=== PATIENT | male | born 1945 | race Two or more races ===

== ENCOUNTER 2017-10-30 13:00 | Outpatient (RCR) ==
--- NOTE | 2017-10-14 12:04 | RS.OPPTEV2 ---
Date of Note: 10/13/17 Visit #: 1 Date of Evaluation: 10/13/17 Payer Source: MEDICARE Treatment Diagnosis: Left LE weakness, s/p CVA History of Condition/Mechanism of Injury:: Patient reports having a CVA approximately 3-4 weeks ago. Documents actually show CVA on 09/05/17. He was in the hospital ~ 4 days and then discharged home per his request. He reports receiving a few weeks of Home Health Physical Therapy. States prior to that he had a CVA that affected the vision of the left eye. Prior Level of Function.....Patient was independent with: ADL's, Self Care, Caregiving, Ambulation/Mobility, Community Integration/Access Level of Function: Prior to this onset, Mr. Rubi was helping his mother, who lives across the street and has Alzheimer's. Functional Limitations: ADL's, Standing, Ambulation, Community Access/ Integration Current Subjective/complaints:: Mr. Rubi states he has gained some of his strength back in his left UE and LE. States he continues to have difficulty with ambulation. Also reports difficulty getting in and out of his vehicle. He has stairs at home, but reports not having any problems with them. States his main problem is ambulating because of weakness still in the left LE. States he has to concentrate on lifting his left foot or he will catch the foot on the floor. He reports no falls. He has not used a walker in a few weeks. States he tried a cane, but he did not feel comfortable with it. He has a shower at home and states he can beef skinner the shower without any problems. States ADL's take him longer, with some difficulty. States his left UE is much better, he can button his clothes now. States he does still have some weakness in the arm above shoulder height. He is very independent and hopes to regain his strength. Treatment Side (optional): Left Medical History Medical History: Hypertension, CVA/TIA, Diabetes Medical History Comments:: Mitral regurgitation, CAD, Cardiac ejection fraction 22%, Systolic heart failure Surgical History: Cholecystectomy Smoking Status: Former smoker Hx Home Medications: bumetanide,coreg,losartan,nicotine patch, atorvastatin, plavix,perflutren Patient's Goals: His goal is to return to his prior level of function. Functional Outcome Measure LE Functional Scale: 35 (35/80=56.25% impairment) Tinetti: 16 (16/28=42.8% impairment) Other: Attempted 6 minute walk test. Mr. Rubi caught his left foot multiple times, and required stabilization by this therapist to avoid falling at least four times. Test was stopped at 2 mins, 30 seconds. Patient ambulated 444 feet in that time. - G Codes & Severity Modifier G Codes & Modifier: Mobility current CK. Mobility goal CI Source of G Code score: Tinetti Assessment Gait - Gait Pattern Gait Comments: Patient ambulates without an assistive device, independently into the department. He demonstrates decreased heel strike and push off on the Left LE. Also demonstrates internal rotation of the right hip and decreased DF during swing phase. Patient demonstrates greater difficulty clearing the left LE with ambulation if he is distracted or talking. Presents associated reaction in the left UE during gait, as it is held out into horizontal abduction with ER. During 6 minute walk test, Mr. Rubi had to be assisted approximately 4 times to keep him from falling due to left LE not clearing the floor. He is able to perform sit to stand transfers independently. General Range of Motion: Bilateral UE AROM is WFL's. Right LE AROM WFL's. Left LE AAROM is WFL's. Muscle Strength: Right UE and LE strength 5/5 throughout. Left UE is 4/5 at the shoulder, 4+/5 elbow and wrist. Bonsai Tender left 65 lbs, right 79-80 lbs. Left hip 4/5, quads 4-5, HS 4-/5. Ankle DF 4-/5, PF 4/5, inversion and eversion 4-/ 5. Trunk strength 4/5. Sensation - Sensation Right Upper Extremity: Intact/Normal Left Upper Extremity: Intact/Normal Right Lower Extremity: Intact/Normal Left Lower Extremity: Intact/Normal Comments: Proprioception intact in left UE and LE. Balance - Sitting Balance Static Sitting Balance: Good Dynamic Sitting Balance: Good - Standing Balance Static Standing Balance: Good (-) Dynamic Standing Balance: Fair (+) Coordination - Tests Right Finger to Nose: Normal/Intact Heel to Meng: Normal/Intact Toe Tapping: Normal/Intact Left Finger to Nose: Mild Deviation Heel to Meng: Mild Deviation Toe Tapping: Moderate Deviation (at faster speeds) Interventions - Exercise/Activities/Manual Therapy Exercises/Activities: None given today. Manual Therapy: NA - Charges Timed Code Treatment Minutes: 0 Total Treatment Time: 50 mins Procedures billed for this date of service:: EVAL Medium EVALUATION COMPLEXITY LEVEL EVALUATION COMPLEXITY LEVEL: HISTORY: Medium (CVA, Diabetes, HX heart problems) , EXAM OF BODY SYSTEMS: Medium (strength, coordination, sensation, balance, gait ), CLINICAL PRESENTATION: Medium, CLINICAL DECISION MAKING: Medium Assessment Assessment: Patient presents to therapy with a diagnosis of generalized weakness. He presents 5 weeks after having a CVA that affected the left side and has significantly impaired his ambulation. He presents with left LE weakness and impaired coordination. He presents to be at a High risk for falls per Tinetti Assessement and being unable to complete the 6 minute walk test due to multiple near falls. He exhibits great potential to regain coordination and strength to return to his previous level of independence and decrease his risk for falls. Patient Education: Education of diagnosis, Body/Joint mechanics, Home Exercise Program, Home Safety, Activity Modification, Education of Plan of Care Rehab Potential: Good Short Term Goals Goal #1: Patient independent and compliant with HEP. Goal to be met by: 10/28/17 Goal #2: Pt will demo. consistent foot clearance on the left LE w/ all ambulation. Goal to be met by: 10/28/17 Goal #3: Left LE coordination to show only slight impairment. Goal to be met by: 10/28/17 Goal #4: Pt able to complete 6 min. walk test with no loss of balance. Goal to be met by: 11/04/17 [facility] Goals Goal #1: Pt knows HEP and to continue ex's to maintain level of function at D/C. Goal to be met by: 11/23/17 Goal #2: Score on Tinetti Assessment improved to 24/28. Goal to be met by: 11/23/17 Goal #3: Pt to amb. community distances w/ good safety and no loss of balance. Goal to be met by: 11/23/17 Goal #4: Pt able to perform all ADL's independently without difficulty. Goal to be met by: 11/23/17 Plan - Treatment to be Provided Procedures: Therapeutic Exercises, Therapeutic Activity, Gait Training, Neuromuscular Rehab, Patient Education Modalities: No Modalities - Treatment Plan Frequency: 3 X week Duration: 4 weeks ORDER # VISITS AND/OR THROUGH DATE: 11/23/17 - Treatment Code (1) Acute left-sided weakness Code(s): M62.89 - OTHER SPECIFIED DISORDERS OF MUSCLE Comments: M62.89 (2) Functional gait abnormality Code(s): R26.89 - OTHER ABNORMALITIES OF GAIT AND MOBILITY Comments: R26.89 (3) Coordination impairment Code(s): R27.8 - OTHER LACK OF COORDINATION Comments: R27.8 (4) Ischemic stroke of frontal lobe Code(s): I63.9 - CEREBRAL INFARCTION, UNSPECIFIED Comments: I63.9
--- NOTE | 2017-10-14 15:52 | RS.OPPTDN ---
Subjective Date of Note: 10/14/17 Visit #: 2 Date of Evaluation: 10/13/17 Payer Source: MEDICARE Treatment Diagnosis: Left LE weakness, s/p CVA Current Subjective/complaints:: Mr. Rubi states he continues to work on some exercises he was given by [facility]. Reports right knee has been bothering him since he has to right on the right LE since having the stroke. Balance System Training - Level 1 Postural Stability/Symmetry #1 Training Mode: Postural Stability Training Vision: Eyes Open Task: None Platform Stability Level (1-12): locked Stance: Normal Reps: 30 secs #2 Training Mode: Weight Shift Training Vision: Eyes Open Task: None Platform Stability Level (1-12): Locked Stance: Normal Reps: 2 sets of 10 reps Interventions - Exercise/Activities/Manual Therapy Exercises/Activities: Patient performed ex's on mat table of left LE controlled heel slides. Then followed instructions to perform heel slides and LAQs alternately. Green band used for resistive hip abduction, 2 sets of 10 reps. Performed bridging, and resisted hip flexion with 5# weight, both 2 sets of 6 reps. In sitting patient performed alternating heel slide and LAQ. He needed some tactile cues to perform the correct exercise. He performed resisted AROM against a red theraband for left ankle DF, inversion, and eversion (2 sets of 8 reps). Patient fatigued quickly with exercises into eversion. Patient performed standing exercises for balance of weight shifting side to side and stepping forward, side ways, and backward. Patient needed CGA to maintain balance with standing activities. Total minutes of Exercise: X 48 mins Manual Therapy: NA - Charges Timed Code Treatment Minutes: 48 mins Total Treatment Time: 53 mins Procedures billed for this date of service:: Neuro X 2, EX Assessment: Mr. Rubi is very pleasant and motivated to gain his balance and coordination back. He demonstrates potential to benefit from continued strengthening and neuromuscular facilitation to improve his ambulation and decrease his risk for falls. Patient Education: Education of diagnosis, Home Safety, Activity Modification Short Term Goals Goal #1: Patient independent and compliant with HEP. Goal to be met by: 10/28/17 Goal #2: Pt will demo. consistent foot clearance on the left LE w/ all ambulation. Goal to be met by: 10/28/17 Goal #3: Left LE coordination to show only slight impairment. Goal to be met by: 10/28/17 Goal #4: Pt able to complete 6 min. walk test with no loss of balance. Goal to be met by: 11/04/17 Auditing Manager Goals Goal #1: Pt knows HEP and to continue ex's to maintain level of function at D/C. Goal to be met by: 11/23/17 Goal #2: Score on Tinetti Assessment improved to . Goal to be met by: 11/23/17 Goal #3: Pt to amb. community distances w/ good safety and no loss of balance. Goal to be met by: 11/23/17 Goal #4: Pt able to perform all ADL's independently without difficulty. Goal to be met by: 11/23/17 Plan PLAN OF CARE EXPIRES ON:: 11/23/17 ORDER # VISITS AND/OR THROUGH DATE: 11/23/17 PLAN: Progress strengthening and coordination activities/exercises.
--- NOTE | 2017-10-16 14:47 | RS.OPPTDN ---
Subjective Date of Note: 10/16/17 Visit #: 3 Date of Evaluation: 10/13/17 Payer Source: MEDICARE Treatment Diagnosis: Left LE weakness, s/p CVA Current Subjective/complaints:: Patient reports he has already done a lot of activity today. States he went to [facility] to buy cat food and went to a visitation at the Home. States left LE gets fatigued and it makes it more difficult to clear his foot when walking. Interventions - Exercise/Activities/Manual Therapy Exercises/Activities: Patient performed ex's on mat table of left LE controlled heel slides. Then followed instructions to perform heel slides and LAQs alternately. Touches right heel to left ankle, left knee, then back to resting position X 5 reps. Performed rhythmic stabilization for trunk rotation , 2 sets of 5 reps. Green band used for resistive hip abduction, 2 sets of 10 reps. Performed bridging, SAQ's, and resisted hip flexion with 5# weight, both 2 sets of 6 reps. Performs SLR circles clockwise X 6 reps then counter clockwise X 6 reps, 2 sets with minimal assistance. He performed resisted AROM against a red theraband for left ankle DF, inversion, and eversion (2 sets of 8 reps). Showed less fatigue today with eversion compared to Thursday. Performed resisted hip flexion with 5# weight on the left ankle. Patient performed standing exercises for balance of weight shifting side to side and stepping forward, side ways, and backward. In standing, performed hip flexion to place foot on top of step and then return to standing, bilaterally 2 sets of 5 reps. Patient needed CGA to maintain balance with standing activities. Performed side stepping to left and right with CGA and tandum walking with moderate assistance. Total minutes of Exercise: X 46 mins Manual Therapy: NA - Charges Timed Code Treatment Minutes: 46 mins Total Treatment Time: 58 mins Procedures billed for this date of service:: Neuro, Ex2 Assessment: Mr. Rubi tolerates all exercise and activities well. He is motivated to perform as much as he can to regain his strength and safety with walking. Patient Education: Education of diagnosis, Body/Joint mechanics, Home Exercise Program Short Term Goals Goal #1: Patient independent and compliant with HEP. Goal to be met by: 10/28/17 Goal #2: Pt will demo. consistent foot clearance on the left LE w/ all ambulation. Goal to be met by: 10/28/17 Goal #3: Left LE coordination to show only slight impairment. Goal to be met by: 10/28/17 Goal #4: Pt able to complete 6 min. walk test with no loss of balance. Goal to be met by: 11/04/17 Care Home Goals Goal #1: Pt knows HEP and to continue ex's to maintain level of function at D/C. Goal to be met by: 11/23/17 Goal #2: Score on Tinetti Assessment improved to . Goal to be met by: 11/23/17 Goal #3: Pt to amb. community distances w/ good safety and no loss of balance. Goal to be met by: 11/23/17 Goal #4: Pt able to perform all ADL's independently without difficulty. Goal to be met by: 11/23/17 Plan PLAN OF CARE EXPIRES ON:: 11/23/17 ORDER # VISITS AND/OR THROUGH DATE: 11/23/17 PLAN: Progress strengthening and coordination exercises.
--- NOTE | 2017-10-21 10:30 | RS.OPPTDN ---
Subjective Date of Note: 10/20/17 Visit #: 4 Date of Evaluation: 10/13/17 Payer Source: MEDICARE Treatment Diagnosis: Left LE weakness, s/p CVA Current Subjective/complaints:: Mr. Rubi states he continues to catch his left foot during gait if he isn't concentrating on his walking. States he will do what ever it takes to get better. Balance System Training - Level 1 Postural Stability/Symmetry #1 Training Mode: Weight Shift Training Vision: Eyes Open Task: None Platform Stability Level (1-12): static Stance: Normal Reps: 6 reps each direction, side to side, then diagonally weight shifting - Level 2 Dynamic Weight Shifting #1 Training Mode: Limits of Stability Skill Level (1-3): 1 Platform Stability Level (1-12): static Reps: one time - Balance Training Comments patient able to complete Limits of Stability training in less time compared to evaluation. Interventions - Exercise/Activities/Manual Therapy Exercises/Activities: Performs SLR circles clockwise X 6 reps then counter clockwise X 6 reps, 2 sets with minimal assistance to guide the left leg in both directions. Patient performed ex's on mat table of left LE controlled heel slides. Then followed instructions to perform heel slides and LAQs alternately. Touches right heel to left ankle, left knee, then back to resting position X5 reps, then changed from touching left knee, ankle, and back to rest position X 5 reps. Performed rhythmic stabilization for trunk rotation , 2 sets of 5 reps. Green band used for resistive hip abduction, 2 sets of 10 reps. Green theraband for hip adduction @ sets of 10 reps.Performed bridging with only left leg with assistance to hold left foot from moving. SAQ's, and resisted hip flexion with 5# weight, both 2 sets of 6 reps. He performed resisted AROM against a red theraband for left ankle DF, inversion, and eversion (2 sets of 8 reps). Performed resisted hip flexion with 5# weight on the left ankle. Performed alternating LAQ and hip flexion with verbal and tactile cues to perform the correct exercise. Patient performed standing exercises for balance of weight shifting side to side and stepping forward, side ways, and backward. In standing,. Performed side stepping to left and right with CGA min-mod assistance. Performed grapevine, only crossing over the other foot with mod assist of one. Total minutes of Exercise: 48 mins Manual Therapy: NA - Charges Timed Code Treatment Minutes: 48 mins Total Treatment Time: 56 mins Procedures billed for this date of service:: Neuro X 2, EX Assessment: patient is very cooperative and motivated to perform any activity that will improve his strength and ambulation. He has potential to benefit from progressed strengthening, balance, and coordination activities. Patient Education: Education of diagnosis, Body/Joint mechanics, Home Safety, Activity Modification, Education of Plan of Care Short Term Goals Goal #1: Patient independent and compliant with HEP. Goal to be met by: 10/28/17 Goal #2: Pt will demo. consistent foot clearance on the left LE w/ all ambulation. Goal to be met by: 10/28/17 Goal #3: Left LE coordination to show only slight impairment. Goal to be met by: 10/28/17 Goal #4: Pt able to complete 6 min. walk test with no loss of balance. Goal to be met by: 11/04/17 Funeral Arrangement Director Goals Goal #1: Pt knows HEP and to continue ex's to maintain level of function at D/C. Goal to be met by: 11/23/17 Goal #2: Score on Tinetti Assessment improved to 28. Goal to be met by: 11/23/17 Goal #3: Pt to amb. community distances w/ good safety and no loss of balance. Goal to be met by: 11/23/17 Goal #4: Pt able to perform all ADL's independently without difficulty. Goal to be met by: 11/23/17 Plan PLAN OF CARE EXPIRES ON:: 11/23/17 ORDER # VISITS AND/OR THROUGH DATE: 11/23/17 PLAN: Progress coordination and strengthening exercises.
--- NOTE | 2017-10-21 14:39 | RS.OPPTDN ---
Subjective Date of Note: 10/21/17 Visit #: 5 Date of Evaluation: 10/13/17 Payer Source: MEDICARE Treatment Diagnosis: Left LE weakness, s/p CVA Current Subjective/complaints:: Mr. Rubi states he is catching his left foot less with walking and also not having to constantly think about it as much. States he is able to get his pants on easier, due to being able to raise the left leg higher and balance on the left leg better to jessica the right LE. Interventions - Exercise/Activities/Manual Therapy Exercises/Activities: Performs SLR circles clockwise X 6 reps then counter clockwise X 6 reps, 2 sets with minimal assistance to guide the left leg in both directions. Patient performed ex's on mat table of left LE controlled heel slides. Then followed instructions to perform heel slides and LAQs alternately. Touches right heel to left ankle, left knee, then back to resting position X5 reps, then changed from touching left knee, ankle, and back to rest position X 5 reps. Performed rhythmic stabilization for trunk rotation , 2 sets of 5 reps. Performed bridging with only left leg with assistance to hold left foot from moving. SAQ's, and resisted hip flexion with 5# weight, both 2 sets of 6 reps. He performed resisted AROM against a red theraband for left ankle DF, inversion, and eversion (2 sets of 10 reps). Performed resisted hip flexion with 6# weight on the left ankle. Performed alternating LAQ and hip flexion with verbal and tactile cues to perform the correct exercise. Performed LAQ's with 5# weight on LE with assistance isolating the quads to perform the exercise correctly. Performed dynamic reaching in standing from side to side with ball, with CGA to maintain balance and VC's. Performed minsquats and lateral weight shifting while standing on foam and using chair for support when needed. Performs alternate arm and leg combination in hooklying, 2 sets of 6 reps. Instructed in exercises to perform at home of standing weight shifting and single leg standing, both while standing at a table or counter for safety. Total minutes of Exercise: 46 mins Manual Therapy: NA HOME EXERCISE PROGRAM: standing weight shifting and single leg standing, both while standing at a table or counter for safety. - Charges Timed Code Treatment Minutes: 46 mins Total Treatment Time: 52 mins Procedures billed for this date of service:: NeuroX 2, EX Assessment: Mr. Rubi reports greater ease with donning pants, due to improved balance on left LE and more hip flexion on the left. Also reports not having to concentrate as much on clearing the left foot with ambulation. He still presents to be a fall risk and needs more strength and coordination in the left LE. Patient Education: Education of diagnosis, Home Exercise Program, Home Safety, Activity Modification, Education of Plan of Care Short Term Goals Goal #1: Patient independent and compliant with HEP. Goal to be met by: 10/28/17 Goal #2: Pt will demo. consistent foot clearance on the left LE w/ all ambulation. Goal to be met by: 10/28/17 Progress towards Goal:: Progressing Goal #3: Left LE coordination to show only slight impairment. Goal to be met by: 10/28/17 Progress towards Goal:: Progressing Goal #4: Pt able to complete 6 min. walk test with no loss of balance. Goal to be met by: 11/04/17 School Office Assistant Goals Goal #1: Pt knows HEP and to continue ex's to maintain level of function at D/C. Goal to be met by: 11/23/17 Goal #2: Score on Tinetti Assessment improved to 28. Goal to be met by: 11/23/17 Goal #3: Pt to amb. community distances w/ good safety and no loss of balance. Goal to be met by: 11/23/17 Goal #4: Pt able to perform all ADL's independently without difficulty. Goal to be met by: 11/23/17 Plan PLAN OF CARE EXPIRES ON:: 11/23/17 ORDER # VISITS AND/OR THROUGH DATE: 11/23/17 PLAN: Progress coordination and strengthening exercises.
--- NOTE | 2017-10-26 09:10 | RS.OPPTDN ---
Subjective Date of Note: 10/23/17 Visit #: 6 Date of Evaluation: 10/13/17 Payer Source: MEDICARE Treatment Diagnosis: Left LE weakness, s/p CVA Current Subjective/complaints:: Patient with no new complaints today. Working on exercises at home. Interventions - Exercise/Activities/Manual Therapy Exercises/Activities: Performs SLR circles clockwise X 6 reps then counter clockwise X 6 reps, 2 sets with minimal assistance to guide the left leg in both directions. Patient performed ex's on mat table of left LE controlled heel slides. Demonstrates smoother movements and performed without assistance. Then followed instructions to perform heel slides and LAQs alternately. Touches right heel to left ankle, left knee, then back to resting position X5 reps, then changed from touching left knee, ankle, and back to rest position X 5 reps. Performed rhythmic stabilization for trunk rotation , 2 sets of 5 reps. Performed bridging with only left leg with assistance to hold left foot from moving. SAQ's, and resisted hip flexion with 5# weight, both 2 sets of 6 reps. He performed resisted AROM against a red theraband for left ankle DF, inversion, and eversion (2 sets of 10 reps). Performed resisted hip flexion with 6# weight on the left ankle. Performed alternating LAQ and hip flexion with verbal and tactile cues to perform the correct exercise. Performed LAQ's with 5# weight on LE with assistance isolating the quads to perform the exercise correctly. Performed minsquats and lateral weight shifting while standing on foam and using chair for support when needed. Performs alternate arm and leg combination in hooklying, 2 sets of 6 reps. Performed on treadmill at speed of .8 mph, with CGA and verbal cues to stay up close to front of treadmill and perform exaggerated hip flexion on the left LE. Performed for 30 secs X 2 reps. Performed side stepping with CGA of one to each direction X 2 approximately 15 feet each direction. Total minutes of Exercise: X 44 mins Manual Therapy: NA HOME EXERCISE PROGRAM: standing weight shifting and single leg standing, both while standing at a table or counter for safety. - Charges Timed Code Treatment Minutes: 44 mins Total Treatment Time: 54 mins Procedures billed for this date of service:: Neuro, EX2 Assessment: Mr. Rubi shows more fluid movement with the LE coordination exercises today and less need for assistance. Continues to demonstrate to be a high fall risk due to inconsistent clearing of the left foot. He demonstrates potential to benefit from continued coordination, strengthening, and balance activities to reduce his risk for falls and facilitate improved community ambulation. Patient Education: Education of diagnosis, Home Exercise Program, Home Safety, Activity Modification, Education of Plan of Care Patient demonstrates compliance with HEP?: Yes Short Term Goals Goal #1: Patient independent and compliant with HEP. Goal to be met by: 10/28/17 Progress towards Goal:: Progressing Goal #2: Pt will demo. consistent foot clearance on the left LE w/ all ambulation. Goal to be met by: 10/28/17 Progress towards Goal:: Progressing Goal #3: Left LE coordination to show only slight impairment. Goal to be met by: 10/28/17 Progress towards Goal:: Progressing Goal #4: Pt able to complete 6 min. walk test with no loss of balance. Goal to be met by: 11/04/17 Long-Term Goals Goal #1: Pt knows HEP and to continue ex's to maintain level of function at D/C. Goal to be met by: 11/23/17 Goal #2: Score on Tinetti Assessment improved to 24/28. Goal to be met by: 11/23/17 Goal #3: Pt to amb. community distances w/ good safety and no loss of balance. Goal to be met by: 11/23/17 Goal #4: Pt able to perform all ADL's independently without difficulty. Goal to be met by: 11/23/17 Plan PLAN OF CARE EXPIRES ON:: 11/23/17 ORDER # VISITS AND/OR THROUGH DATE: 11/23/17 PLAN: Progress balance/coordination/strengthening exercises.
--- NOTE | 2017-10-27 14:34 | RS.OPPTDN ---
Subjective Date of Note: 10/27/17 Visit #: 7 Date of Evaluation: 10/13/17 Payer Source: MEDICARE Treatment Diagnosis: Left LE weakness, s/p CVA Current Subjective/complaints:: States he is a little tired today. He reports he walked several blocks today. States he caught his foot a few times while walking, but did not fall. Interventions - Exercise/Activities/Manual Therapy Exercises/Activities: Performs SLR circles clockwise X 6 reps then counter clockwise X 6 reps, 2 sets with minimal assistance to guide the left leg in both directions. Pt followed instructions to perform heel slides and LAQs alternately. Touches right heel to left ankle, left knee, then back to resting position X5 reps, then changed from touching left knee, ankle, and back to rest position X 5 reps. He needed assistance to perform this activity in the right order. Performed rhythmic stabilization for trunk rotation , 2 sets of 5 reps. Performed bridging with left leg with assistance to hold left foot from moving. SAQ's, and resisted hip flexion with 7# weight, both 3 sets of 8 reps. He performed resisted AROM against a red theraband for left ankle DF, inversion , and eversion (2 sets of 10 reps). Performed resisted hip flexion with 7# weight on the left ankle. Performed alternating LAQ and hip flexion with verbal and tactile cues to perform the correct exercise. Performs alternate arm and leg combination in hooklying, 2 sets of 6 reps. Performed side stepping with CGA of one to each direction X 2 approximately 15 feet each direction. Performed ambulation backward, small steps with min assist of one to maintain balance. Manual Therapy: NA HOME EXERCISE PROGRAM: standing weight shifting and single leg standing, both while standing at a table or counter for safety. - Other Services Other Treatments/Services: Taping/Strapping Treatment Details: Taped left anterior tib to facilitate DF with ambulation. One piece of I Kinesiotape applied. Patient instructed to remove tape if it bothered him. - Charges Timed Code Treatment Minutes: 50 mins Total Treatment Time: 58 mins Procedures billed for this date of service:: Neuro X 2, Ex 2 Assessment: Mr. Rubi is very pleasant and willing to do whatever activities will help his ambulation. He was pleased to try the Kinesiotape, to see if it would help him avoid catching his foot when he walks. Patient Education: Body/Joint mechanics, Home Exercise Program, Home Safety Patient demonstrates compliance with HEP?: Yes Short Term Goals Goal #1: Patient independent and compliant with HEP. Goal to be met by: 10/28/17 Progress towards Goal:: Progressing Goal #2: Pt will demo. consistent foot clearance on the left LE w/ all ambulation. Goal to be met by: 10/28/17 Progress towards Goal:: Progressing Goal #3: Left LE coordination to show only slight impairment. Goal to be met by: 10/28/17 Progress towards Goal:: Progressing Goal #4: Pt able to complete 6 min. walk test with no loss of balance. Goal to be met by: 11/04/17 Intermediate Goals Goal #1: Pt knows HEP and to continue ex's to maintain level of function at D/C. Goal to be met by: 11/23/17 Progress towards goal: Progressing Goal #2: Score on Tinetti Assessment improved to 24/28. Goal to be met by: 11/23/17 Goal #3: Pt to amb. community distances w/ good safety and no loss of balance. Goal to be met by: 11/23/17 Goal #4: Pt able to perform all ADL's independently without difficulty. Goal to be met by: 11/23/17 Plan PLAN OF CARE EXPIRES ON:: 11/23/17 ORDER # VISITS AND/OR THROUGH DATE: 11/23/17 PLAN: Progress balance and coordination exercises. May use kinesiotape to inhibit left plantarflexion.
--- NOTE | 2017-10-28 15:39 | RS.OPPTDN ---
Subjective Date of Note: 10/28/17 Visit #: 8 Date of Evaluation: 10/13/17 Payer Source: MEDICARE Treatment Diagnosis: Left LE weakness, s/p CVA Current Subjective/complaints:: Mr. Rubi states he walked 16 blocks again today. States he caught his foot a few times. States the Kinesiotape came off when he changed his socks. States he really liked the tape and would like to use it again. Interventions - Exercise/Activities/Manual Therapy Exercises/Activities: Received stretching heelcord on left LE. Facilitated left LE strength with D1 PNF flexion pattern for the left LE X 8 reps with assistance of verbal and tactile cues. Touches right heel to left ankle, left knee, then back to resting position X5 reps, then changed from touching left knee, ankle, and back to rest position X 5 reps. He needed assistance to perform this activity in the right order. Performed rhythmic stabilization for trunk rotation , 2 sets of 5 reps. Performed bridging with left leg with assistance to hold left foot from moving. SAQ's, and resisted hip flexion with 7 # weight, both 3 sets of 8 reps. He performed resisted AROM against a red theraband for left ankle DF, 3 sets of 10 reps. Performed resisted hip flexion with 7# weight on the left ankle. Performed alternating LAQ and hip flexion with verbal and tactile cues to perform the correct exercise. Performs alternate arm and leg combination in hooklying, 2 sets of 6 reps. Performed side stepping with CGA of one to each direction X 2 approximately 15 feet each direction. In standing, performed weight shifting anteriorly, posteriorly, and laterally with CGA to min assist. Focused on dynamic balance also with standing and kicking a ball that was rolled on the floor to him, ~ 5 reps each leg, with min A of 1. Performed on Leg press with 75# for both LE's, then toe pushes with 50#, both 10 reps each. Total minutes of Exercise: 54 mins Manual Therapy: NA HOME EXERCISE PROGRAM: standing weight shifting and single leg standing, both while standing at a table or counter for safety. - Other Services Other Treatments/Services: Taping/Strapping Treatment Details: Kinesiotape applied to left anterior tib to faciliate DF and supination. - Objective Findings Observations,measurements,etc.: Patient demonstrates spasticity in the left LE into PF and pronation during swing phase. - Charges Timed Code Treatment Minutes: 54 mins Total Treatment Time: 62 mins Procedures billed for this date of service:: Neuro X 2, Ex 2 Assessment: Mr. Rbui is trying to walk more. He is highly motivated to continue to gain more strength and safety. He continues to be at risk for falls , as he sporadically catches the left foot during swing phase. He has potential to reduce his risk for falls with continued skilled therapy. Patient Education: Home Exercise Program, Home Safety, Activity Modification, Education of Plan of Care Patient demonstrates compliance with HEP?: Yes Short Term Goals Goal #1: Patient independent and compliant with HEP. Goal to be met by: 10/28/17 Progress towards Goal:: Progressing Goal #2: Pt will demo. consistent foot clearance on the left LE w/ all ambulation. Goal to be met by: 10/28/17 Progress towards Goal:: Progressing Goal #3: Left LE coordination to show only slight impairment. Goal to be met by: 10/28/17 Progress towards Goal:: Progressing Goal #4: Pt able to complete 6 min. walk test with no loss of balance. Goal to be met by: 11/04/17 Long-Term Goals Goal #1: Pt knows HEP and to continue ex's to maintain level of function at D/C. Goal to be met by: 11/23/17 Progress towards goal: Progressing Goal #2: Score on Tinetti Assessment improved to 28. Goal to be met by: 11/23/17 Goal #3: Pt to amb. community distances w/ good safety and no loss of balance. Goal to be met by: 11/23/17 Progress towards goal: Progressing Goal #4: Pt able to perform all ADL's independently without difficulty. Goal to be met by: 11/23/17 Progress towards goal: Progressing Plan PLAN OF CARE EXPIRES ON:: 11/23/17 ORDER # VISITS AND/OR THROUGH DATE: 11/23/17 PLAN: Continue to progress activities to reduce left ankle spasticity and decrease his risk for falls.
--- NOTE | 2017-10-30 15:47 | RS.OPPTDN ---
Subjective Date of Note: 10/30/17 Visit #: 9 Date of Evaluation: 10/13/17 Payer Source: MEDICARE Treatment Diagnosis: Left LE weakness, s/p CVA Current Subjective/complaints:: Mr. Rubi states he has been working on his exercises at home. Reports he is able to more easily raise the left leg. Interventions - Exercise/Activities/Manual Therapy Exercises/Activities: Received stretching heelcord and HS on left LE. Facilitated left LE strength with D1 PNF flexion pattern for the left LE X 6 reps with assistance of verbal and tactile cues. Performed rhythmic stabilization for trunk rotation , 2 sets of 5 reps. Performed bridging with left leg with minimal assistance to hold left foot. SAQ's, and resisted hip flexion with 8# weight, both 2 sets of 8 reps. He performed resisted AROM against a red theraband for left ankle DF, 3 sets of 10 reps. Performed resisted hip flexion with 8# weight on the left ankle. Performs alternate arm and leg combination in hooklying, 2 sets of 6 reps. Performed side stepping with CGA of one to each direction X 2 approximately 15 feet each direction. In standing, performed weight shifting anteriorly, posteriorly, and laterally with CGA to min assist. Performed tandum walking with min assistance X 4 reps at distance of 15 feet each rep. Performed on Leg press with 75# for both LE's, then toe pushes with 50#, both 10 reps each. Manual Therapy: NA HOME EXERCISE PROGRAM: standing weight shifting and single leg standing, both while standing at a table or counter for safety. - Objective Findings Observations,measurements,etc.: Patient continues to demonstrate spasticity in the left LE. The left ankle is drawn into PF and inversion during swing phase, causing him to catch his foot if he is not concentrating or if fatigued. He did not catch his foot on the floor while walking in the department today. - Charges Timed Code Treatment Minutes: 56 mins Total Treatment Time: 65 mins Procedures billed for this date of service:: Neuro X 2, Ex X2 Assessment: Mr. Rubi is compliant with HEP and tolerates all exercises in the department very well. We will reassess him on next visit, which is his 10th visit. Patient Education: Education of diagnosis, Body/Joint mechanics, Home Exercise Program Patient demonstrates compliance with HEP?: Yes Short Term Goals Goal #1: Patient independent and compliant with HEP. Goal to be met by: 10/28/17 Progress towards Goal:: Progressing Goal #2: Pt will demo. consistent foot clearance on the left LE w/ all ambulation. Goal to be met by: 10/28/17 Progress towards Goal:: Progressing Goal #3: Left LE coordination to show only slight impairment. Goal to be met by: 10/28/17 Progress towards Goal:: Progressing Goal #4: Pt able to complete 6 min. walk test with no loss of balance. Goal to be met by: 11/04/17 Nursing Home Goals Goal #1: Pt knows HEP and to continue ex's to maintain level of function at D/C. Goal to be met by: 11/23/17 Progress towards goal: Progressing Goal #2: Score on Tinetti Assessment improved to . Goal to be met by: 11/23/17 Goal #3: Pt to amb. community distances w/ good safety and no loss of balance. Goal to be met by: 11/23/17 Progress towards goal: Progressing Goal #4: Pt able to perform all ADL's independently without difficulty. Goal to be met by: 11/23/17 Progress towards goal: Progressing Plan PLAN OF CARE EXPIRES ON:: 11/23/17 ORDER # VISITS AND/OR THROUGH DATE: 11/23/17 PLAN: Plan to reassess Mr. Rubi's level of function on next visit.
== END 2017-10-30 23:59 ==
PROVIDERS: ATTEND Internal Medicine
DX: I63.9 Cerebral infarction, unspecified (principal); M62.89 Other specified disorders of muscle; R26.89 Other abnormalities of gait and mobility; R27.8 Other lack of coordination

== ENCOUNTER 2017-11-27 13:00 | Outpatient (RCR) ==
--- NOTE | 2017-11-03 15:27 | RS.PTSUM ---
Progress Note/Summary Date of Note: 11/03/17 Date of Evaluation: 10/13/17 Number of Visits: 10 Reporting Period for this Progress Note: 10/13/17 through 11/03/17 Current Complaints/Gains: Mr. Rubi states he has been trying to walk each morning. States this morning, he decided to walk [address] On his way back home, he caught his foot and fell on the sidewalk. Objective Measurements/Presentation: Demonstrates scraps and fresh blood on the right elbow. Patient performed 5 X sit to stand at 11.15 sec (improved from 11.82 secs at evaluation. Patient ambulated 444 feet,in 2 minutes 22 seconds, which equals at gait speed of .95 m/s. He did not catch his foot during this distance. Coordination presents to have minimal impairment on the left LE, movements are smoother compared to evaluation, and patient needs less assistance. Patient received 55 mins of therapy of therapeutic exercise and neurofaciliation: Received stretching heelcord and HS on left LE. Facilitated left LE strength with D1 PNF flexion pattern for the left LE X 5 reps with assistance of verbal and tactile cues. Performed rhythmic stabilization for trunk rotation , 2 sets of 5 reps. Performed bridging with left leg with minimal assistance to hold left foot, X 10 reps. SAQ's, and resisted hip flexion with 8# weight, both 2 sets of 10 reps. He performed resisted AROM against a red theraband for left ankle DF, 3 sets of 10 reps. Performed resisted hip flexion with 8# weight on the left ankle, 2 sets of 10 reps Performs alternate arm and leg combination in hooklying, 2 sets of 6 reps. Performed side stepping with CGA of one to each direction X 2 approximately 15 feet each direction. Performed on Leg press with 90# for both LE's, then toe pushes with 75#, both 10 reps each. Charged Neuro X 2, Ex 2 G Codes: Mob current CJ. Mob goal CI Source of G Code Score: Tinetti Assessment: improvedto =29% impairment. Improved in areas of: rising from chair, standing balance, left foot clearing floor, and path. - Short Term Goals Goal #1: Patient independent and compliant with HEP. Goal to be met by: 11/17/17 Progress towards Goal:: Progressing Goal #2: Pt will demo. consistent foot clearance on the left LE w/ all ambulation. Goal to be met by: 11/17/17 Progress towards Goal:: Partially Met (met with short to moderate distances) Goal #3: Left LE coordination to show only slight impairment. Goal to be met by: 10/28/17 Progress towards Goal:: Met Goal #4: Pt able to complete 6 min. walk test with no loss of balance. Goal to be met by: 11/17/17 - [employer] Goals Goal #1: Pt knows HEP and to continue ex's to maintain level of function at D/C. Goal to be met by: 12/08/17 Progress towards goal: Progressing Goal #2: Score on Tinetti Assessment improved to 24/28. Goal to be met by: 12/08/17 Progress towards goal: Progressing (score today of 20/28) Goal #3: Pt to amb. community distances w/ good safety and no loss of balance. Goal to be met by: 12/08/17 Progress towards goal: Progressing Goal #4: Pt able to perform all ADL's independently without difficulty. Goal to be met by: 12/08/17 Progress towards goal: Progressing - Assessment Assessment of Improvement/Progress: Mr. Rubi has made good progress with increased gait speed and left foot clearance short to moderate distances. Demonstrates 4 point improvement with Tinetti Assessment today. Mr. Rubi showed an improvement with his walking today, showing consistently clearing of the left foot with short to moderate distances. He is having difficulty now with prolonged walking due to fatigue, or from being tired towards the afternoon and evening. He shows potential for continued improvement with all areas to further decrease his risk for falls. - Plan Plan: Will request continuation of therapy sessions. PLAN OF CARE EXPIRES ON:: 12/08/17 ORDER # VISITS AND/OR THROUGH DATE: 12/08/17
--- NOTE | 2017-11-04 16:31 | RS.OPPTDN ---
Subjective Date of Note: 11/04/17 Visit #: 11 Date of Evaluation: 10/13/17 Payer Source: MEDICARE Treatment Diagnosis: Left LE weakness, s/p CVA Current Subjective/complaints:: Patient reports being frustrated that his recovery seems to be taking so long. He can tell that he is better. States today he walked his regular distance and did not have any problems like he did yesterday. Interventions - Exercise/Activities/Manual Therapy Exercises/Activities: Performed rhythmic stabilization for trunk rotation , 2 sets of 5 reps. Performed bridging with both legs on romanian ball and assistance to hold ball in place. SAQ's, and resisted hip flexion with 8# weight, both 2 sets of 10 reps. He performed resisted AROM against a red theraband for left ankle DF, inversion, and eversion 2 sets of 10 reps. Performed resisted hip flexion with 8# weight on the left ankle. Performs alternate arm and leg combination in hooklying, 2 sets of 6 reps. Sitting on side of table, he performed resisted left hip ER and IR with a green theraband. Performed side stepping with CGA of one to each direction X 3 approximately 15 feet each direction. Also performed hip flexion in standing to place foot on step in front of him with CGA of one to steady. He performed this 2 sets of 5 reps each leg. In standing, performed weight shifting anteriorly, posteriorly, and laterally with CGA to min assist. Performed on Leg press with 75# for both LE's , then toe pushes with 60#, both 2 sets of 10 reps each. Manual Therapy: NA HOME EXERCISE PROGRAM: standing weight shifting and single leg standing, both while standing at a table or counter for safety. - Charges Timed Code Treatment Minutes: 59 mins Total Treatment Time: 71 mins Procedures billed for this date of service:: Ex 2, Neuro 2 Assessment: Mr. Rubi welcomes the progression of weight and difficulty with the exercise in the department. He is wanting to continue therapy beyond this first order, to gain further control of the right LE and improve his gait. Patient Education: Home Exercise Program, Home Safety, Activity Modification, Education of Plan of Care Patient demonstrates compliance with HEP?: Yes Short Term Goals Goal #1: Patient independent and compliant with HEP. Goal to be met by: 11/17/17 Progress towards Goal:: Progressing Goal #2: Pt will demo. consistent foot clearance on the left LE w/ all ambulation. Goal to be met by: 11/17/17 Progress towards Goal:: Partially Met (met with short to moderate distances) Goal #3: Left LE coordination to show only slight impairment. Goal to be met by: 10/28/17 Progress towards Goal:: Met Goal #4: Pt able to complete 6 min. walk test with no loss of balance. Goal to be met by: 11/17/17 Mechanical Maintenance Goals Goal #1: Pt knows HEP and to continue ex's to maintain level of function at D/C. Goal to be met by: 12/08/17 Progress towards goal: Progressing Goal #2: Score on Tinetti Assessment improved to 24/28. Goal to be met by: 12/08/17 Progress towards goal: Progressing (score today of 20/28) Goal #3: Pt to amb. community distances w/ good safety and no loss of balance. Goal to be met by: 12/08/17 Progress towards goal: Progressing Goal #4: Pt able to perform all ADL's independently without difficulty. Goal to be met by: 12/08/17 Progress towards goal: Progressing Plan PLAN OF CARE EXPIRES ON:: 12/08/17 ORDER # VISITS AND/OR THROUGH DATE: 12/08/17 PLAN: Will request continuation order for 4 more weeks of therapy.
--- NOTE | 2017-11-11 08:38 | RS.OPPTDN ---
Subjective Date of Note: 11/10/17 Visit #: 12 (including evaluation) Date of Evaluation: 10/13/17 Payer Source: MEDICARE Treatment Diagnosis: Left LE weakness, s/p CVA Current Subjective/complaints:: Mr. Rubi states he walk 32 blocks yesterday. States he had to stop to rest several times and as he got tired, he had to really concentrate so that he would not catch his foot. This morning he just walked 16 blocks so that he was not too tired for therapy this afternoon. Balance System Training - Level 1 Postural Stability/Symmetry #1 Training Mode: Weight Shift Training Task: None Platform Stability Level (1-12): static with foam Stance: Normal Reps: 8 reps each direction, side to side, then diagonally weight shifting - Level 2 Dynamic Weight Shifting #1 Training Mode: Limits of Stability Skill Level (1-3): 1 Platform Stability Level (1-12): static with foam Reps: 1 Interventions - Exercise/Activities/Manual Therapy Exercises/Activities: Performed resisted trunk rotation with 6# weighted ball, 2 sets of 8 reps. Performed bridging with both legs on egyptian ball and assistance to hold ball in place. SAQ's, and resisted hip flexion with 8# weight , both 2 sets of 10 reps. He performed resisted AROM against a green theraband for left ankle DF, red band for inversion, and eversion 2 sets of 10 reps. Performed resisted hip flexion with 8# weight on the left ankle. Performs alternate arm and leg combination in hooklying, 2 sets of 6 reps. Sitting on side of table, he performed resisted left hip ER and IR with a green theraband. Performed hip flexion in standing to place foot on step in front of him with CGA of one to steady. He performed this 2 sets of 5 reps each leg. In standing , performed weight shifting anteriorly, posteriorly, and laterally with CGA to min assist. Performed standing alternating kicks to touch targets on the wall , with CGA for balance. Performed on Leg press with 90# for both LE's, then toe pushes with 75#, both 2 sets of 10 reps each. Total minutes of Exercise: 55 mins Manual Therapy: NA HOME EXERCISE PROGRAM: standing weight shifting and single leg standing, both while standing at a table or counter for safety. - Charges Timed Code Treatment Minutes: 55 mins Total Treatment Time: 62 mins Procedures billed for this date of service:: EX2, Neuro 2 Assessment: Patient progressing with strength. We've been able to progress his balance activity to make them more challenging. His next visit will be his 12th. We are in the process of requesting another order to continue therapy. He is ambulating more on his own at home, but continues to be at moderate risk for falls according to most recent Tinetti Score. Patient Education: Education of diagnosis, Body/Joint mechanics, Home Exercise Program, Home Safety, Activity Modification, Education of Plan of Care Patient demonstrates compliance with HEP?: Yes Short Term Goals Goal #1: Patient independent and compliant with HEP. Goal to be met by: 11/17/17 Progress towards Goal:: Met Goal #2: Pt will demo. consistent foot clearance on the left LE w/ all ambulation. Goal to be met by: 11/17/17 Progress towards Goal:: Partially Met (met with short to moderate distances) Goal #3: Left LE coordination to show only slight impairment. Goal to be met by: 10/28/17 Progress towards Goal:: Met Goal #4: Pt able to complete 6 min. walk test with no loss of balance. Goal to be met by: 11/17/17 Progress towards Goal:: Progressing Sterile Products Processor Goals Goal #1: Pt knows HEP and to continue ex's to maintain level of function at D/C. Goal to be met by: 12/08/17 Progress towards goal: Progressing Goal #2: Score on Tinetti Assessment improved to 24/28. Goal to be met by: 12/08/17 Progress towards goal: Progressing Goal #3: Pt to amb. community distances w/ good safety and no loss of balance. Goal to be met by: 12/08/17 Progress towards goal: Progressing Goal #4: Pt able to perform all ADL's independently without difficulty. Goal to be met by: 12/08/17 Progress towards goal: Progressing Plan PLAN OF CARE EXPIRES ON:: 12/08/17 ORDER # VISITS AND/OR THROUGH DATE: 12/08/17 PLAN: Continue with progression of strength and balance activiites to reduce his risk for falls.
--- NOTE | 2017-11-11 14:34 | RS.OPPTDN ---
Subjective Date of Note: 11/11/17 Visit #: 13 (including the evaluation) Date of Evaluation: 10/13/17 Payer Source: MEDICARE Treatment Diagnosis: Left LE weakness, s/p CVA Current Subjective/complaints:: Mr. Rubi states he walked 24 blocks today, but had to rest a few times. States he also went to a [employer] service today, and he had to leave early because he could not tolerate standing so long. Interventions - Exercise/Activities/Manual Therapy Exercises/Activities: Performed resisted trunk rotation with 6# weighted ball, 2 sets of 8 reps. Performed bridging with both legs on iranian ball and assistance to hold ball in place. SAQ's, and resisted hip flexion with 8# weight , both 2 sets of 10 reps. He performed resisted AROM against a green theraband for left ankle DF, red band for inversion, and eversion 2 sets of 10 reps. Performed resisted hip flexion with 8# weight on the left ankle. Sitting on side of table, he performed resisted left hip ER and IR with a green theraband. Also perform LAQ's in sitting 8# left leg. Performed hip flexion in standing to place foot on step in front of him with CGA of one to steady. He performed this 2 sets of 5 reps each leg. In standing, performed weight shifting anteriorly, posteriorly, and laterally with CGA to min assist. Performed standing alternating kicks to touch targets on the wall, with CGA for balance. Performed on Leg press with 90# for both LE's, then toe pushes with 75#, both 2 sets of 10 reps each. Patient given red theraband and was shown how to perform ankle eversion at home. Total minutes of Exercise: 54 mins Manual Therapy: NA HOME EXERCISE PROGRAM: standing weight shifting and single leg standing, both while standing at a table or counter for safety. Red theraband for ankle eversion. - Charges Timed Code Treatment Minutes: 54 mins Total Treatment Time: 64 mins Procedures billed for this date of service:: EX2, Neuro2 Assessment: Mr. Rubi was much smoother today with balance activities of step up and kicking targets on the wall, than he was yesterday. He has progressed with therapy and shows potential to gain further progress and less risk for falls. Patient Education: Education of diagnosis, Body/Joint mechanics, Home Exercise Program, Home Safety, Activity Modification, Education of Plan of Care Patient demonstrates compliance with HEP?: Yes Short Term Goals Goal #1: Patient independent and compliant with HEP. Goal to be met by: 11/17/17 Progress towards Goal:: Met Goal #2: Pt will demo. consistent foot clearance on the left LE w/ all ambulation. Goal to be met by: 11/17/17 Progress towards Goal:: Partially Met (met with short to moderate distances) Goal #3: Left LE coordination to show only slight impairment. Goal to be met by: 10/28/17 Progress towards Goal:: Met Goal #4: Pt able to complete 6 min. walk test with no loss of balance. Goal to be met by: 11/17/17 Progress towards Goal:: Progressing Client Account Assistant Goals Goal #1: Pt knows HEP and to continue ex's to maintain level of function at D/C. Goal to be met by: 12/08/17 Progress towards goal: Progressing Goal #2: Score on Tinetti Assessment improved to 24/28. Goal to be met by: 12/08/17 Progress towards goal: Progressing Goal #3: Pt to amb. community distances w/ good safety and no loss of balance. Goal to be met by: 12/08/17 Progress towards goal: Progressing Goal #4: Pt able to perform all ADL's independently without difficulty. Goal to be met by: 12/08/17 Progress towards goal: Progressing Plan PLAN OF CARE EXPIRES ON:: 12/08/17 ORDER # VISITS AND/OR THROUGH DATE: 12/08/17 PLAN: Requesting continuation order. Will continue therapy once order is received.
--- NOTE | 2017-11-17 09:22 | RS.CSNOTE ---
PT Case Note Date of Note: 11/17/17 Title of document: Approval from [facility] of 12 more visits Note: Marion from [facility] called this morning to let us know that they have approved 12 visits. She states that it will be a little bit before we get the official approval letter, but we can go ahead and schedule him.
--- NOTE | 2017-11-17 14:42 | RS.OPPTDN ---
Subjective Date of Note: 11/17/17 Visit #: 14 (including evaluation) Date of Evaluation: 10/13/17 Payer Source: MEDICARE Treatment Diagnosis: Left LE weakness, s/p CVA Current Subjective/complaints:: Mr. Rubi states he has been walking 16 or 24 blocks each morning. States he has not had any falls since his last visit in therapy. States he has been performing his ankle exercises with the theraband. Balance System Training - Level 1 Postural Stability/Symmetry #1 Training Mode: Weight Shift Training Task: None Platform Stability Level (1-12): static with foam pad Stance: Normal Reps: 8 reps each direction, side to side, then diagonally weight shifting #2 Training Mode: Postural Stability Training Vision: Eyes Open Task: None (mini squats) Stance: Normal Reps: 10 reps - Level 2 Dynamic Weight Shifting #1 Training Mode: Limits of Stability Skill Level (1-3): 1 Platform Stability Level (1-12): static with foam pad Interventions - Exercise/Activities/Manual Therapy Exercises/Activities: SAQ's, and resisted hip flexion with 8# weight, both 2 sets of 10 reps. He performed resisted AROM against a green theraband for left ankle DF,inversion, and eversion 2 sets of 10 reps. Performed resisted hip flexion with 8# weight on the left ankle. Sitting on side of table, he performed resisted left hip ER and IR with a green theraband. Also perform LAQ' s in sitting 8# left leg. In standing, performed weight shifting anteriorly, posteriorly, and laterally with CGA to min assist. Performed standing alternating kicks to touch numbered targets on the wall in a given sequence, with CGA for balance. Performed on Leg press with 90# for both LE's, then toe pushes with 75#, both 2 sets of 10 reps each. Resisted ankle DF and eversion with a yellow theraband while Mr. Rubi recreated swing phase by advancing his left LE, while holding on to both rails of the treadmill. Treadmill belt was not moving. He then stepped up to a small stool with the left LE, against the resistance of a yellow band. He then performed exaggerated left hip flexion and ankle DF while walking on the treadmill at .8 mph X 30 secs, 2 times. Total minutes of Exercise: 54 mins Manual Therapy: NA HOME EXERCISE PROGRAM: standing weight shifting and single leg standing, both while standing at a table or counter for safety. Red theraband for ankle eversion. - Charges Timed Code Treatment Minutes: 54 mins Total Treatment Time: 62 mins Procedures billed for this date of service:: EX2, Neuro2 Assessment: Mr. Rubi is able to take advanced challenges with his exercises. His main problem at this time is coordination and control of the left ankle with walking. He demonstrates potential to benefit from progressed coordination and balance activities. Patient Education: Education of diagnosis, Home Exercise Program, Home Safety Patient demonstrates compliance with HEP?: Yes Short Term Goals Goal #1: Patient independent and compliant with HEP. Goal to be met by: 11/17/17 Progress towards Goal:: Met Goal #2: Pt will demo. consistent foot clearance on the left LE w/ all ambulation. Goal to be met by: 11/17/17 Progress towards Goal:: Partially Met (met with short to moderate distances) Goal #3: Left LE coordination to show only slight impairment. Goal to be met by: 10/28/17 Progress towards Goal:: Met Goal #4: Pt able to complete 6 min. walk test with no loss of balance. Goal to be met by: 11/17/17 Progress towards Goal:: Progressing Architect In Training Goals Goal #1: Pt knows HEP and to continue ex's to maintain level of function at D/C. Goal to be met by: 12/08/17 Progress towards goal: Progressing Goal #2: Score on Tinetti Assessment improved to 24/28. Goal to be met by: 12/08/17 Progress towards goal: Progressing Goal #3: Pt to amb. community distances w/ good safety and no loss of balance. Goal to be met by: 12/08/17 Progress towards goal: Progressing Goal #4: Pt able to perform all ADL's independently without difficulty. Goal to be met by: 12/08/17 Progress towards goal: Progressing Plan PLAN OF CARE EXPIRES ON:: 12/08/17 ORDER # VISITS AND/OR THROUGH DATE: 12/08/17 PLAN: Progress balance and coordination activities for greater challenge to improve his gait and decrease his risk for falls.
--- NOTE | 2017-11-20 11:19 | RS.OPPTDN ---
Subjective Date of Note: 11/18/17 Visit #: 15 (not including evaluation) Date of Evaluation: 10/13/17 Payer Source: MEDICARE Treatment Diagnosis: Left LE weakness, s/p CVA Current Subjective/complaints:: Mr. Rubi states he walked this morning. States he continues to have to concentrate on clearing the floor/ground with his left foot. States if he is tired, he is more likely to catch his foot. Balance System Training - Level 1 Postural Stability/Symmetry #1 Training Mode: Weight Shift Training Vision: Eyes Open Task: None Platform Stability Level (1-12): static with foam pad Stance: Normal Reps: 10 reps each direction, side to side, then diagonally weight shifting - Level 2 Dynamic Weight Shifting #1 Training Mode: Limits of Stability Skill Level (1-3): 1 Platform Stability Level (1-12): static Interventions - Exercise/Activities/Manual Therapy Exercises/Activities: Mr. Rubi performs on the leg press 90# both legs 3 sets of 10 reps. Performs on BAPS board with 1.5 # weight in all directions. Performs resisted ankle DF, inversion, and eversion with green theraband 3 sets of 10 reps. Ambulates with 1# wt attached to forefoot of shoe and 3# weight on ankle, to perform exaggerated hip flexion and then with focus on heelstrike. Patient performed standing balance exercises on foam pad of lateral and ant/ intelligent systems engineer weight shifting , mini squats, and heel raises. Patient performed retrograde revolutions with left foot in pedal of recumbent bike to facilitate ankle DF and hip flexion X 10 reps. Total minutes of Exercise: 51 mins Manual Therapy: NA HOME EXERCISE PROGRAM: standing weight shifting and single leg standing, both while standing at a table or counter for safety. Red theraband for ankle eversion. - Charges Timed Code Treatment Minutes: 51 mins Total Treatment Time: 59 mins Procedures billed for this date of service:: EX 2, neuro Assessment: Mr. Rubi tolerates different challenges with his balance and coordination. He is very pleasant and motivated to return to his previous level of function. Patient Education: Education of diagnosis, Body/Joint mechanics, Home Exercise Program Patient demonstrates compliance with HEP?: Yes Short Term Goals Goal #1: Patient independent and compliant with HEP. Goal to be met by: 11/17/17 Progress towards Goal:: Met Goal #2: Pt will demo. consistent foot clearance on the left LE w/ all ambulation. Goal to be met by: 11/17/17 Progress towards Goal:: Partially Met (met with short to moderate distances) Goal #3: Left LE coordination to show only slight impairment. Goal to be met by: 10/28/17 Progress towards Goal:: Met Goal #4: Pt able to complete 6 min. walk test with no loss of balance. Goal to be met by: 11/17/17 Progress towards Goal:: Progressing Assisted Goals Goal #1: Pt knows HEP and to continue ex's to maintain level of function at D/C. Goal to be met by: 12/08/17 Progress towards goal: Progressing Goal #2: Score on Tinetti Assessment improved to 24/28. Goal to be met by: 12/08/17 Progress towards goal: Progressing Goal #3: Pt to amb. community distances w/ good safety and no loss of balance. Goal to be met by: 12/08/17 Progress towards goal: Progressing Goal #4: Pt able to perform all ADL's independently without difficulty. Goal to be met by: 12/08/17 Progress towards goal: Progressing Plan PLAN OF CARE EXPIRES ON:: 12/08/17 ORDER # VISITS AND/OR THROUGH DATE: 12/08/17 PLAN: Progress strengthening and balance exercises to reduce his risk for falls.
--- NOTE | 2017-11-23 11:35 | RS.OPPTDN ---
Subjective Date of Note: 11/20/17 Date of Evaluation: 10/13/17 Payer Source: MEDICARE Treatment Diagnosis: Left LE weakness, s/p CVA Current Subjective/complaints:: States he walked this morning. States he likes focusing on his ankle in therapy, because at this point, that is his biggest problem with walking. Balance System Training - Level 1 Postural Stability/Symmetry #1 Training Mode: Weight Shift Training Platform Stability Level (1-12): 11 Stance: Normal Reps: 10 reps each direction, lateral weight shifting and ant/posterior wt shift - Level 2 Dynamic Weight Shifting #1 Training Mode: Limits of Stability Skill Level (1-3): 1 Platform Stability Level (1-12): 11 Reps: 1 Interventions - Exercise/Activities/Manual Therapy Exercises/Activities: Mr. Rubi performs on the leg press 90# both legs 3 sets of 10 reps. Performs on BAPS board with 1.5 # weight on both sides of foot , in all directions. Performs resisted ankle DF, inversion, and eversion with green theraband 3 sets of 10 reps. Ambulates with 2# wt attached tforefoot of shoe and 3# weight on ankle, to perform exaggerated hip flexion and then with focus on heelstrike. Also stepped up to moderate step with the weights on the foot and ankle. Patient performed standing balance exercises on foam pad of lateral and ant/translator and interpreter weight shifting , mini squats, and heel raises. Total minutes of Exercise: 56 mins Manual Therapy: NA HOME EXERCISE PROGRAM: standing weight shifting and single leg standing, both while standing at a table or counter for safety. Red theraband for ankle eversion. - Charges Timed Code Treatment Minutes: 56 mins Total Treatment Time: 65 mins Procedures billed for this date of service:: EX2, neuro2 Assessment: Mr. Rubi is very pleasant and motivated for me to challenge him so he can regain strength and coordination with the left LE. He demonstrates the ability to reduce his risk for falls with continued skilled therapy. Patient demonstrates compliance with HEP?: Yes Short Term Goals Goal #1: Patient independent and compliant with HEP. Goal to be met by: 11/17/17 Progress towards Goal:: Met Goal #2: Pt will demo. consistent foot clearance on the left LE w/ all ambulation. Goal to be met by: 11/17/17 Progress towards Goal:: Partially Met (met with short to moderate distances) Goal #3: Pt to demo. consistent heelstrike on left LE with gait. Goal to be met by: 12/07/17 Goal #4: Pt able to complete 6 min. walk test with no loss of balance. Goal to be met by: 11/17/17 Progress towards Goal:: Progressing Intermediate Goals Goal #1: Pt knows HEP and to continue ex's to maintain level of function at D/C. Goal to be met by: 12/08/17 Progress towards goal: Progressing Goal #2: Score on Tinetti Assessment improved to 24/28. Goal to be met by: 12/08/17 Progress towards goal: Progressing Goal #3: Pt to amb. community distances w/ good safety and no loss of balance. Goal to be met by: 12/08/17 Progress towards goal: Progressing Goal #4: Pt able to perform all ADL's independently without difficulty. Goal to be met by: 12/08/17 Progress towards goal: Progressing Plan PLAN OF CARE EXPIRES ON:: 12/08/17 ORDER # VISITS AND/OR THROUGH DATE: 12/08/17 PLAN: Progress exercises and add challenges as tolerated.
--- NOTE | 2017-11-25 15:42 | RS.CSNOTE ---
PT Case Note Date of Note: 11/23/17 Title of document: Department cancelled patient's appoint. Note: The therapist that treats Mr. Rubi was unavailable. No other Physical Therapist was available to treat Mr. Rubi on that date.
--- NOTE | 2017-11-25 15:51 | RS.OPPTDN ---
Subjective Date of Note: 11/25/17 Visit #: 17 (including evaluation) Date of Evaluation: 10/13/17 Payer Source: MEDICARE Treatment Diagnosis: Left LE weakness, s/p CVA Current Subjective/complaints:: Mr. Rubi states he walked 16 blocks today. Continues to report having to stop to rest and catching his left foot when fatigue. Reports no falls over the weekend. Interventions - Exercise/Activities/Manual Therapy Exercises/Activities: Performs on BAPS board with 1.5 # weight on both sides of foot, in all directions. Performs resisted ankle DF, inversion, and eversion with green theraband 3 sets of 10 reps. Ambulates with 2# wt attached tforefoot of shoe and 3# weight on ankle on the treadmill with CGA for safety, to perform exaggerated hip flexion and then with focus on heelstrike. He performed these at 30 -45 sec intervals. Also stepped up to moderate step with the weights on the foot and ankle. Performed step up to moderate step height without weights, 10 reps on left, 10 reps on right, and then 10 reps alternating legs. Patient performed standing balance exercises on foam pad of lateral and ant/deicer finisher weight shifting , mini squats, and heel raises. Ambulated in the hallway with CGA for safety with focus on heelstrike. Patient is able to perform heelstrike when concentrating, but gets fatigued quickly. Ambulates distance of 50 feet with heelstrike, before having to rest. Strongly encouraged Mr. Rubi to concentrate on heelstrike with all ambulation . Total minutes of Exercise: 55 mins Manual Therapy: NA HOME EXERCISE PROGRAM: standing weight shifting and single leg standing, both while standing at a table or counter for safety. theraband for ankle eversion. - Charges Timed Code Treatment Minutes: 55 mins Total Treatment Time: 62 mins Procedures billed for this date of service:: EX2, Neuro2 Assessment: Patient shows the ability today to perform a more normal gait with left heelstrike with significant concentration. He fatigues quickly, but shows good potential to regain normal gait pattern and reduce his risk for falls with continued therapy. Patient Education: Education of diagnosis, Home Exercise Program, Activity Modification Patient demonstrates compliance with HEP?: Yes Short Term Goals Goal #1: Patient independent and compliant with HEP. Goal to be met by: 11/17/17 Progress towards Goal:: Met Goal #2: Pt will demo. consistent foot clearance on the left LE w/ all ambulation. Goal to be met by: 11/17/17 Progress towards Goal:: Partially Met (met with short to moderate distances) Goal #3: Pt to demo. consistent heelstrike on left LE with gait. Goal to be met by: 12/07/17 Progress towards Goal:: Progressing Comments:: Able to do short distances while concentrating. Goal #4: Pt able to complete 6 min. walk test with no loss of balance. Goal to be met by: 11/17/17 Progress towards Goal:: Progressing Director Business Management Goals Goal #1: Pt knows HEP and to continue ex's to maintain level of function at D/C. Goal to be met by: 12/08/17 Progress towards goal: Progressing Goal #2: Score on Tinetti Assessment improved to 24/28. Goal to be met by: 12/08/17 Progress towards goal: Progressing Goal #3: Pt to amb. community distances w/ good safety and no loss of balance. Goal to be met by: 12/08/17 Progress towards goal: Progressing Goal #4: Pt able to perform all ADL's independently without difficulty. Goal to be met by: 12/08/17 Progress towards goal: Progressing Plan PLAN OF CARE EXPIRES ON:: 12/08/17 ORDER # VISITS AND/OR THROUGH DATE: 12/08/17 PLAN: Progress work on heelstrike and balance activities.
--- NOTE | 2017-11-27 14:52 | RS.OPPTDN ---
Subjective Date of Note: 11/27/17 Visit #: 18 Date of Evaluation: 10/13/17 Payer Source: MEDICARE Treatment Diagnosis: Left LE weakness, s/p CVA Current Subjective/complaints:: Mr. Rubi states he walked this morning, but did not feel confident to work on heelstrike with each step on the left LE, being by himself. States it takes so much concentration and effort that he feels he is safer to work on it in therapy. Interventions - Exercise/Activities/Manual Therapy Exercises/Activities: Ambulates with 2# wt attached to forefoot of shoe and 3# weight on ankle on the treadmill with CGA for safety, to perform exaggerated hip flexion X 2 reps at 30 second intervals, and then with focus on heelstrike. Stepped up to moderate step with the weights on the foot and ankle. Performed side stepping with the same weights on the left foot and ankle with CGA . Patient performed standing balance exercises on foam pad of lateral and ant/tracer clerk weight shifting , mini squats, and heel raises. Worked on single leg stance with CGA 4 sets of 8 secs on each leg. Ambulated in the hallway with CGA for safety with focus on heelstrike. Patient fatigues quickly when focusing on heelstrike on the left LE. His gait is slower while concentrating, which makes his balance worse. Manual Therapy: NA HOME EXERCISE PROGRAM: standing weight shifting and single leg standing, both while standing at a table or counter for safety. theraband for ankle eversion. - Charges Timed Code Treatment Minutes: 42 mins Total Treatment Time: 50 mins Procedures billed for this date of service:: EX ,Neuro 2 Assessment: MR. Rubi demonstrates improved ability with gait with moderate effort and concentration in department. He is not confident to practice heelstrike when he is alone at home. Patient Education: Education of diagnosis, Body/Joint mechanics, Activity Modification, Education of Plan of Care Short Term Goals Goal #1: Patient independent and compliant with HEP. Goal to be met by: 11/17/17 Progress towards Goal:: Met Goal #2: Pt will demo. consistent foot clearance on the left LE w/ all ambulation. Goal to be met by: 11/17/17 Progress towards Goal:: Met Goal #3: Pt to demo. consistent heelstrike on left LE with gait. Goal to be met by: 12/07/17 Progress towards Goal:: Progressing Goal #4: Pt able to complete 6 min. walk test with no loss of balance. Goal to be met by: 11/17/17 Progress towards Goal:: Progressing Over Short And Damage Clerk Goals Goal #1: Pt knows HEP and to continue ex's to maintain level of function at D/C. Goal to be met by: 12/11/17 Progress towards goal: Progressing Goal #2: Score on Tinetti Assessment improved to 24/28. Goal to be met by: 12/11/17 Progress towards goal: Progressing Goal #3: Pt to amb. community distances w/ good safety and no loss of balance. Goal to be met by: 12/11/17 Progress towards goal: Progressing Goal #4: Pt able to perform all ADL's independently without difficulty. Goal to be met by: 12/11/17 Progress towards goal: Progressing Plan PLAN OF CARE EXPIRES ON:: 12/11/17 ORDER # VISITS AND/OR THROUGH DATE: 12/11/17 PLAN: Continue work on heelstrike of left LE to improve his safety with ambulation and decrease his risk for falls. Comments:: LTG dates updated to accomodate additional four weeks of therapy that were approved through .
== END 2017-11-29 23:59 ==
PROVIDERS: ATTEND Internal Medicine
DX: I63.9 Cerebral infarction, unspecified (principal); M62.89 Other specified disorders of muscle; R26.89 Other abnormalities of gait and mobility; R27.8 Other lack of coordination

== ENCOUNTER 2017-12-11 13:00 | Outpatient (RCR) ==
--- NOTE | 2017-12-01 15:37 | RS.OPPTDN ---
Subjective Date of Note: 12/01/17 Visit #: 19 (including evaluation) Date of Evaluation: 10/13/17 Payer Source: MEDICARE Treatment Diagnosis: Left LE weakness, s/p CVA Current Subjective/complaints:: Mr. Rubi continues to report problems with the right foot/ankle. States he had no falls over the weekend. Reports he walks 16 blocks everyday. He has to stop a few times due to fatigue. If he walks any further than that, he will get too tired and catch his foot. Interventions - Exercise/Activities/Manual Therapy Exercises/Activities: Worked on BAPs board with 2.5 #'s on each side of foot in all directions for proprioception. Ambulates with 2# wt attached to forefoot of shoe and 3# weight on ankle on the treadmill with CGA for safety, to perform exaggerated hip flexion X 2 reps at 30 second intervals, and then with focus on heelstrike. Stepped up to a 12 inch step with the weights on the foot and ankle. Previous step we were working with was 9.5 inch in height. Patient performed standing balance exercises on foam pad of lateral and ant/manager bank weight shifting , mini squats, and heel raises. Worked on single leg stance with CGA 4 sets of 8 secs on each leg on the blue theraband pad. Ambulated in the hallway with CGA for safety with focus on heelstrike. Mr. Rubi wants to take a long stride on the left LE when he is focusing on heelstrike. He also slows down his gait speed, so much that it is much more difficult for him to balance. He needs CGA and verbal cues to demonstrate a more normal gait pattern. Manual Therapy: NA HOME EXERCISE PROGRAM: standing weight shifting and single leg standing, both while standing at a table or counter for safety. theraband for ankle eversion. - Charges Timed Code Treatment Minutes: 55 mins Total Treatment Time: 62 mins Procedures billed for this date of service:: EX 2, Neuro2 Assessment: Mr. Rubi demonstrates the ability to demonstrate a more normal gait with verbal cues, CGA, and concentration. He demonstrates potential to achieve more normal and safer gait with continued skilled therapy. Patient demonstrates compliance with HEP?: Yes Short Term Goals Goal #1: Patient independent and compliant with HEP. Goal to be met by: 11/17/17 Progress towards Goal:: Met Goal #2: Pt will demo. consistent foot clearance on the left LE w/ all ambulation. Goal to be met by: 11/17/17 Progress towards Goal:: Met Goal #3: Pt to demo. consistent heelstrike on left LE with gait. Goal to be met by: 12/07/17 Progress towards Goal:: Progressing Goal #4: Pt able to complete 6 min. walk test with no loss of balance. Goal to be met by: 11/17/17 Progress towards Goal:: Progressing Mcfp Goals Goal #1: Pt knows HEP and to continue ex's to maintain level of function at D/C. Goal to be met by: 12/11/17 Progress towards goal: Progressing Goal #2: Score on Tinetti Assessment improved to 24/28. Goal to be met by: 12/11/17 Progress towards goal: Progressing Goal #3: Pt to amb. community distances w/ good safety and no loss of balance. Goal to be met by: 12/11/17 Progress towards goal: Progressing Goal #4: Pt able to perform all ADL's independently without difficulty. Goal to be met by: 12/11/17 Progress towards goal: Progressing Plan PLAN OF CARE EXPIRES ON:: 12/11/17 ORDER # VISITS AND/OR THROUGH DATE: 12/11/17 PLAN: progress gait, balance, and proprioception activities.
--- NOTE | 2017-12-03 13:12 | RS.OPPTDN ---
Subjective Date of Note: 12/02/17 Date of Evaluation: 10/13/17 Payer Source: MEDICARE Treatment Diagnosis: Left LE weakness, s/p CVA Current Subjective/complaints:: No new issues today. States he is walking in his house without shoes on. Balance System Training - Level 1 Postural Stability/Symmetry #1 Training Mode: Postural Stability Training Vision: Eyes Open Task: None Platform Stability Level (1-12): static Stance: Single Leg Reps: each leg X 10 seconds each, 4 reps. Interventions - Exercise/Activities/Manual Therapy Exercises/Activities: Worked on BAPs board with 2.5 #'s on each side of foot in all directions for proprioception. Ambulates with 2# wt attached to forefoot of shoe on the treadmill with CGA for safety, to focus on heelstrike. Patient performed standing balance exercises on foam pad of lateral and ant/clinical editor weight shifting , mini squats, and heel raises. . Ambulated in the hallway with CGA for safety with focus on heelstrike, 400 feet. He needs CGA and verbal cues to demonstrate a more normal gait pattern. He performs a more normal stride today while focusing on heelstrike. Fatigues quickly while focusing on heelstrike. Performed tandum walking, left sidestepping, and backward walking , and right side stepping on 5 foot square on floor. He needs min to moderate assistance at times to maintain his balance with tandum and backward walking. Worked on static standiing balance with feet in tandum position. Requires moderate assistance with it to maintain balance. Manual Therapy: NA HOME EXERCISE PROGRAM: standing weight shifting and single leg standing, both while standing at a table or counter for safety. theraband for ankle eversion. - Charges Timed Code Treatment Minutes: 48 mins Total Treatment Time: 55 mins Procedures billed for this date of service:: Ex2, Neuro Assessment: Mr. Rubi continues to handle increased challenges to his balance well. He requires much more assistance with the advanced balance activities. He demonstrates the need to continue skilled therapy to improve his gait and reduce his risk for falls. Patient Education: Education of diagnosis, Home Exercise Program, Home Safety, Activity Modification, Education of Plan of Care Patient demonstrates compliance with HEP?: Yes Short Term Goals Goal #1: Patient independent and compliant with HEP. Goal to be met by: 11/17/17 Progress towards Goal:: Met Goal #2: Pt will demo. consistent foot clearance on the left LE w/ all ambulation. Goal to be met by: 11/17/17 Progress towards Goal:: Met Comments:: Seldom catches foot when tired. Goal #3: Pt to demo. consistent heelstrike on left LE with gait. Goal to be met by: 12/07/17 Progress towards Goal:: Progressing Goal #4: Pt able to complete 6 min. walk test with no loss of balance. Goal to be met by: 11/17/17 Progress towards Goal:: Progressing Manager Qa Goals Goal #1: Pt knows HEP and to continue ex's to maintain level of function at D/C. Goal to be met by: 12/11/17 Progress towards goal: Progressing Goal #2: Score on Tinetti Assessment improved to 24/28. Goal to be met by: 12/11/17 Progress towards goal: Progressing Goal #3: Pt to amb. community distances w/ good safety and no loss of balance. Goal to be met by: 12/11/17 Progress towards goal: Progressing Goal #4: Pt able to perform all ADL's independently without difficulty. Goal to be met by: 12/11/17 Progress towards goal: Progressing Plan PLAN OF CARE EXPIRES ON:: 12/11/17 ORDER # VISITS AND/OR THROUGH DATE: 12/11/17 PLAN: Progress exerises and activities as tolerated.
--- NOTE | 2017-12-04 15:22 | RS.OPPTDN ---
Subjective Date of Note: 12/04/17 Visit #: 21 Date of Evaluation: 10/13/17 Payer Source: MEDICARE Treatment Diagnosis: Left LE weakness, s/p CVA Current Subjective/complaints:: Mr. Rubi states he ambulated 24 blocks today. States he catches his foot a few times a day. Balance System Training - Level 1 Postural Stability/Symmetry #1 Training Mode: Weight Shift Training Vision: Eyes Open Task: None Reps: each leg X 10 seconds each, 4 reps. #2 Reps: 10 reps - Level 2 Dynamic Weight Shifting #1 Training Mode: Maze Control Skill Level (1-3): 1 and 2 Platform Stability Level (1-12): static Reps: once on each skill level #2 Training Mode: Random Control Skill Level (1-3): 1 Platform Stability Level (1-12): static Interventions - Exercise/Activities/Manual Therapy Exercises/Activities: . Patient performed standing balance exercises on foam pad of lateral and ant/oil field equipment mechanic supervisor weight shifting , mini squats, and heel raises. . Ambulated in the hallway with CGA for safety with focus on heelstrike, 400 feet. Also descended and ascended 30 feet ramp with 2# weight on forefoot of shoe, while holding onto rail. He continues to fatigue quickly while focusing on heelstrike. He also holds out both UE's to assist with balancing, due to a slower gait speed when focusing on heelstrike. Performed tandum walking, left sidestepping, and backward walking , and right side stepping on 5 foot square on floor. He needs min to moderate assistance at times to maintain his balance with tandum and backward walking. Worked on static standing balance with feet in tandum position. Again,requires moderate assistance with it to maintain balance. Manual Therapy: NA HOME EXERCISE PROGRAM: standing weight shifting and single leg standing, both while standing at a table or counter for safety. theraband for ankle eversion. - Charges Timed Code Treatment Minutes: 65 mins Total Treatment Time: 72 mins Procedures billed for this date of service:: EX2, Neuro2 Assessment: He demonstrate improved gait pattern when concentrating and with verbal cues. He will benefit from completing his plan of care to improve his level of function and decrease his risk for falls. Patient demonstrates compliance with HEP?: Yes Short Term Goals Goal #1: Patient independent and compliant with HEP. Goal to be met by: 11/17/17 Progress towards Goal:: Met Goal #2: Pt will demo. consistent foot clearance on the left LE w/ all ambulation. Goal to be met by: 11/17/17 Progress towards Goal:: Met Goal #3: Pt to demo. consistent heelstrike on left LE with gait. Goal to be met by: 12/07/17 (85% met) Progress towards Goal:: Progressing Goal #4: Pt able to complete 6 min. walk test with no loss of balance. Goal to be met by: 11/17/17 Progress towards Goal:: Progressing Retirement Goals Goal #1: Pt knows HEP and to continue ex's to maintain level of function at D/C. Goal to be met by: 12/11/17 Progress towards goal: Progressing Goal #2: Score on Tinetti Assessment improved to 24/28. Goal to be met by: 12/11/17 Progress towards goal: Met Goal #3: Pt to amb. community distances w/ good safety and no loss of balance. Goal to be met by: 12/11/17 Progress towards goal: Progressing Goal #4: Pt able to perform all ADL's independently without difficulty. Goal to be met by: 12/11/17 (85% met) Progress towards goal: Progressing Plan PLAN OF CARE EXPIRES ON:: 12/11/17 ORDER # VISITS AND/OR THROUGH DATE: 12/11/17 PLAN: Continue plan of care to achieve snf goals.
--- NOTE | 2017-12-09 14:39 | RS.OPPTDN ---
Subjective Date of Note: 12/08/17 Visit #: 22 Date of Evaluation: 10/13/17 Payer Source: MEDICARE Treatment Diagnosis: Left LE weakness, s/p CVA Current Subjective/complaints:: States he walked 20 blocks this morning and caught his toe once. States he continues to have to concentrate on his walking to clear his toes of the left foot. Balance System Training - Level 1 Postural Stability/Symmetry #1 Training Mode: Weight Shift Training Vision: Eyes Open Task: None Platform Stability Level (1-12): static Stance: Normal Reps: each leg X 10 seconds each, 4 reps. - Level 2 Dynamic Weight Shifting #1 Training Mode: Limits of Stability Skill Level (1-3): 2 Platform Stability Level (1-12): static Interventions - Exercise/Activities/Manual Therapy Exercises/Activities: Performs on bike for 10 mins. Performed strengthening ex' s to the left ankle into DF, inversion, and eversion with blue theraband, 3 sets of 10 reps. . Ambulated in the hallway with CGA for safety with focus on heelstrike, 400 feet. He continues to fatigue quickly while focusing on heelstrike. He holds out both UE's to assist with balancing, due to a slower gait speed when focusing on heelstrike. Performed tandum walking, left sidestepping, and backward walking , and right side stepping on 5 foot square on floor with 3# weight on left foot. He needs min to moderate assistance at times to maintain his balance with tandum and backward walking. Worked on static standing balance with feet in tandum position. Again,requires moderate assistance with it to maintain balance. Manual Therapy: NA HOME EXERCISE PROGRAM: standing weight shifting and single leg standing, both while standing at a table or counter for safety. theraband for ankle eversion. - Charges Timed Code Treatment Minutes: 52 mins Total Treatment Time: 59 mins Procedures billed for this date of service:: Ex 2, Neuro Assessment: Mr. Rubi is very compliant and pleasant to work with. He is receptive to advancing resistance and challenges for his balance to improve his gait. Patient demonstrates compliance with HEP?: Yes Short Term Goals Goal #1: Patient independent and compliant with HEP. Goal to be met by: 11/17/17 Progress towards Goal:: Met Goal #2: Pt will demo. consistent foot clearance on the left LE w/ all ambulation. Goal to be met by: 11/17/17 Progress towards Goal:: Met Goal #3: Pt to demo. consistent heelstrike on left LE with gait. Goal to be met by: 12/07/17 (90-95%) Progress towards Goal:: Progressing Goal #4: Pt able to complete 6 min. walk test with no loss of balance. Goal to be met by: 11/17/17 Progress towards Goal:: Progressing Director Of Special Education Goals Goal #1: Pt knows HEP and to continue ex's to maintain level of function at D/C. Goal to be met by: 12/11/17 Progress towards goal: Progressing Goal #2: Score on Tinetti Assessment improved to 24/28. Goal to be met by: 12/11/17 Progress towards goal: Met Goal #3: Pt to amb. community distances w/ good safety and no loss of balance. Goal to be met by: 12/11/17 Progress towards goal: Progressing Goal #4: Pt able to perform all ADL's independently without difficulty. Goal to be met by: 12/11/17 (85% met) Progress towards goal: Progressing Plan PLAN OF CARE EXPIRES ON:: 12/11/17 ORDER # VISITS AND/OR THROUGH DATE: 12/11/17 PLAN: Continue with progression of ex's and education of full HEP .
--- NOTE | 2017-12-09 14:52 | RS.OPPTDN ---
Subjective Date of Note: 12/09/17 Visit #: 23 Date of Evaluation: 10/13/17 Payer Source: MEDICARE Treatment Diagnosis: Left LE weakness, s/p CVA Current Subjective/complaints:: States he walked 16 blocks this morning. Reports veering from a straight path often when he is walking. Interventions - Exercise/Activities/Manual Therapy Exercises/Activities: . Patient performed single leg standing on blue theraband foam pad, 6 reps 5-10 seconds each. Requires chair in front of him to use as needed and CGA to maintain balance. Ambulated in the hallway with CGA for safety with focus on heelstrike, 450 feet. Able to ascend and descend 30 feet ramp without catching his foot. Gait speed is still significantly slower as he concentrates on heelstrike. Balance is worse when he is concentrating due to the decrease in his gait speed. Performed tandum walking , left sidestepping, and backward walking , and right side stepping on 5 foot square on floor, with 3# weight on forefoot of shoe. He needs min to moderate assistance at times to maintain his balance with tandum walking. Worked on static standing balance with feet in tandum position. Again,requires moderate assistance with it to maintain balance. Performed resisted standing SLR into flexion against green theraband, 2 sets of 8 reps while holding onto rail. Manual Therapy: NA HOME EXERCISE PROGRAM: standing weight shifting and single leg standing, both while standing at a table or counter for safety. theraband for ankle eversion. - Charges Timed Code Treatment Minutes: 50 mins Total Treatment Time: 57 mins Procedures billed for this date of service:: Ex2, Neuro Assessment: Mr. Rubi tolerates all activities very well. Concentration with ambulation affects his balance and increases his risk for falls. He demonstrates the need for progression of exercises in the department and for HEP. Patient Education: Education of diagnosis, Body/Joint mechanics, Home Exercise Program, Home Safety, Activity Modification Patient demonstrates compliance with HEP?: Yes Short Term Goals Goal #1: Patient independent and compliant with HEP. Goal to be met by: 11/17/17 Progress towards Goal:: Met Goal #2: Pt will demo. consistent foot clearance on the left LE w/ all ambulation. Goal to be met by: 11/17/17 Progress towards Goal:: Met Goal #3: Pt to demo. consistent heelstrike on left LE with gait. Goal to be met by: 12/07/17 (95%) Progress towards Goal:: Progressing Goal #4: Pt able to complete 6 min. walk test with no loss of balance. Goal to be met by: 11/17/17 Progress towards Goal:: Progressing Commodity Merchant Goals Goal #1: Pt knows HEP and to continue ex's to maintain level of function at D/C. Goal to be met by: 12/11/17 Progress towards goal: Progressing Goal #2: Score on Tinetti Assessment improved to 24/28. Goal to be met by: 12/11/17 Progress towards goal: Met Goal #3: Pt to amb. community distances w/ good safety and no loss of balance. Goal to be met by: 12/11/17 (85%) Progress towards goal: Progressing Goal #4: Pt able to perform all ADL's independently without difficulty. Goal to be met by: 12/11/17 (90% met) Progress towards goal: Progressing Plan PLAN OF CARE EXPIRES ON:: 12/11/17 ORDER # VISITS AND/OR THROUGH DATE: 12/11/17 PLAN: Pt to be seen for last session with focus on progression HEP and safety.
--- NOTE | 2017-12-11 14:59 | RS.OPPTDC ---
Date of Discharge: 12/11/17 Date of Evaluation: 10/13/17 Number of Visits: 24 Treatment Diagnosis: Left LE weakness, s/p CVA Current Complaints/Gains: Mr. Rubi agrees to discharge. He agrees to continue to walk and perform his HEP. Functional Outcome Measure Tinetti: 24 (=14.3% impairment) - G Codes & Severity Modifier G Codes & Modifier: Mobility D/C CI. Mobiligy Goal CI Source of G Code score: Tinetti Assessment Gait - Gait Pattern Gait Comments: Mr. Rubi ambulates without an assistive device, independently. He demonstrates decreased left hip and knee flexion during swing phase. At his regular gait speed, he demonstrates plantar flexion and inversion of the left foot and ankle. If he slows down and concentrates, he is able to demonstrate good heelstrike, but this slower gait has a negative effect on his balance. He ambulates in the department and 400+ feet in the hallway without catching his left foot. Interventions - Exercise/Activities/Manual Therapy Exercises/Activities: . Patient performed single leg standing on blue theraband foam pad, 6 reps 5-10 seconds each. Requires chair in front of him to use as needed and CGA to maintain balance. Ambulated in the hallway with CGA for safety with focus on heelstrike, 450 feet. Able to ascend and descend 30 feet ramp without catching his foot. Gait speed continues to be significantly slower as he concentrates on heelstrike. Balance is worse when he is concentrating due to the decrease in his gait speed. Performed tandum walking, left sidestepping, and backward walking , and right side stepping on 5 foot square on floor, with 3# weight on forefoot of shoe. He needs min to moderate assistance at times to maintain his balance with tandum walking. Worked on static standing balance with feet in tandum position. Again,requires moderate assistance with it to maintain balance. Performed resisted standing SLR into flexion against green theraband, 2 sets of 8 reps while holding onto rail. Demonstrated and performed ex's for HEP of standing heel/toe raises, single leg standing, and hip flexion, knee extension, with ankle DF, and toe curls for anterior tib strengthening. Manual Therapy: NA HOME EXERCISE PROGRAM: standing weight shifting and single leg standing, both while standing at a table or counter for safety. theraband for ankle eversion. - Objective Findings Observations,measurements,etc.: Left hip 4+/5, quads 4 to 4+/5, HS 4+/5. Left ankle DF 4+/5, inversion 4/5, eversion 4- to 4/5, PF 5/5. Static Standing balance is Good. Dynamic Standing balance is Good. Left heel to rossi coordination test is good. Toe tapping shows mild deviation with faster speeds. - Charges Timed Code Treatment Minutes: 53 mins Total Treatment Time: 59 mins Procedures billed for this date of service:: EX3, neuro Assessment Assessment: Mr. Rubi has progressed with left LE strength, coordination, and balance. He is able to walk community distances without catching his foot. He has improved on the Tinetti Assessment from to with therapy, showing less risk for falls. Short Term Goals Goal #1: Patient independent and compliant with HEP. Goal to be met by: 11/17/17 Progress towards Goal:: Met Goal #2: Pt will demo. consistent foot clearance on the left LE w/ all ambulation. Goal to be met by: 11/17/17 Progress towards Goal:: Met Goal #3: Pt to demo. consistent heelstrike on left LE with gait. Goal to be met by: 12/07/17 Progress towards Goal:: Partially Met Comments:: Depends on if he concentrates on heelstrike and level of fatigue. Goal #4: Pt able to complete 6 min. walk test with no loss of balance. Goal to be met by: 11/17/17 Progress towards Goal:: Met Comments:: Able to walk all over department and hallway without loss of balance. Slip Laster Goals Goal #1: Pt knows HEP and to continue ex's to maintain level of function at D/C. Goal to be met by: 12/11/17 Progress towards goal: Met Goal #2: Score on Tinetti Assessment improved to . Goal to be met by: 12/11/17 Progress towards goal: Met Goal #3: Pt to amb. community distances w/ good safety and no loss of balance. Goal to be met by: 12/11/17 Progress towards goal: Met Goal #4: Pt able to perform all ADL's independently without difficulty. Goal to be met by: 12/11/17 Progress towards goal: Met Plan Reason for Discharge:: No Further Skilled Therapy Indicated
== END 2017-12-30 23:59 ==
PROVIDERS: ATTEND Internal Medicine
DX: I63.9 Cerebral infarction, unspecified (principal); M62.89 Other specified disorders of muscle; R26.89 Other abnormalities of gait and mobility; R27.8 Other lack of coordination